=== PATIENT | male | born 1960 ===

== ENCOUNTER 2021-05-10 17:12 | Emergency (ER) | payer SELFPAY ==
[2021-05-10 17:43] VITALS: BP 100/55
--- NOTE | 2021-05-10 21:34 | Emergency Department Report ---
ED Upper Extremity Inj HPI - General Chief Complaint: Wound/Laceration Stated Complaint: CUT ON THE FINGER Time Seen by Provider: 05/10/21 20:02 Source: patient Mode of arrival: Ambulatory Limitations: Language Barrier - History of Present Illness MD Complaint: Injury to:: left, finger -: Sudden (2 days ago accidentally cut finger on the saw), days(s) (2 days ago) Other Extremity Injury: Fingers: Left Other Injuries: none Handedness: right Place: home Improves With: none Worsens With: none Context: injury (Some resulting) Associated Symptoms: denies other symptoms - Related Data Previous Rx's Medication Instructions Recorded Last Taken Type Chlorhexidine Gluconate [Hibiclens] 5 ml TP TID #240 liquid 05/10/21 Unknown Rx cephALEXin [Keflex] 500 mg PO Q8HR #30 cap 05/10/21 Unknown Rx Allergies Allergy/AdvReac Type Severity Reaction Status Date / Time No Known Allergies Allergy Unverified 05/10/21 17:33 ED Review of Systems ROS: Stated complaint: CUT ON THE FINGER Other details as noted in HPI Comment: All other systems reviewed and negative ED Past Medical Hx - Past Medical History Previous Medical History?: Yes Hx Diabetes: Yes - Surgical History Past Surgical History?: No - Social History Smoking Status: Never Smoker Substance Use Type: Alcohol, Prescribed - Medications Home Medications: Home Medications Medication Instructions Recorded Confirmed Last Taken Type Chlorhexidine Gluconate [Hibiclens] 5 ml TP TID #240 liquid 05/10/21 Unknown Rx cephALEXin [Keflex] 500 mg PO Q8HR #30 cap 05/10/21 Unknown Rx ED Physical Exam - General Limitations: Language Barrier General appearance: alert, in no apparent distress - Head Head exam: Present: atraumatic, normocephalic - Eye Eye exam: Present: normal appearance - ENT ENT exam: Present: mucous membranes moist - Neck Neck exam: Present: normal inspection - Respiratory Respiratory exam: Present: normal lung sounds bilaterally. Absent: respiratory distress - Cardiovascular Cardiovascular Exam: Present: regular rate, normal rhythm. Absent: systolic murmur, diastolic murmur, rubs, gallop - GI/Abdominal GI/Abdominal exam: Present: soft, normal bowel sounds - Rectal Rectal exam: Present: deferred - Extremities Exam Extremities exam: Present: normal inspection, tenderness (To the left middle finger. The digit sounds like an intention superficial avulsion like) - Back Exam Back exam: Present: normal inspection - Neurological Exam Neurological exam: Present: alert, oriented X3 - Psychiatric Psychiatric exam: Present: normal affect, normal mood - Skin Skin exam: Present: warm, dry, intact, normal color. Absent: rash ED Course Vital Signs 05/10/21 17:33 Temperature 98.1 F Pulse Rate 75 Respiratory 18 Rate Blood Pressure 100/55 O2 Sat by Pulse 97 Oximetry ED Medical Decision Making - Medical Decision Making 60-year-old diabetic management department with the to the pulmonary saw and treated with his family resulting in [place]ack[place] avulsion type injury scant bleeding he was placed in a surgery form dressing hemostasis was achieved tetanus shot was provided placed on antibiotics advised to follow-up with primary care doctor 2 to 3 days to have wound reevaluated Critical care attestation.: If time is entered above; I have spent that time in minutes in the direct care of this critically ill patient, excluding procedure time. ED Disposition Clinical Impression: Laceration of middle finger with delay in treatment Disposition: DC-01 TO HOME OR SELFCARE Is pt being admited?: No Does the pt Need Aspirin: No Condition: Stable Instructions: Nonsutured Laceration Care Prescriptions: Chlorhexidine Gluconate [Hibiclens] 5 ml TP TID #240 liquid cephALEXin [Keflex] 500 mg PO Q8HR #30 cap Referrals: [facility] [Provider Group] - 3-5 Days [facility], [Primary Care Provider] - 3-5 Days
== END 2021-05-10 21:15 | disposition home or self-care (01) ==
LOC: ED 17:12
DX: S61.218A Laceration without foreign body of other finger without damage to nail, initial encounter (principal); E11.9 Type 2 diabetes mellitus without complications; Z79.899 Other long term (current) drug therapy; X58.XXXA Exposure to other specified factors, initial encounter; Y93.89 Activity, other specified; Y92.099 Unspecified place in other non-institutional residence as the place of occurrence of the external cause; Y99.8 Other external cause status
CPT/HCPCS: 99282

== ENCOUNTER 2021-05-28 14:12 | Emergency (ER) | payer SELFPAY ==
--- NOTE | 2021-05-28 15:58 | Event Note ---
ED Screening Note Date of service: 05/28/21 Time: 15:57 ED Screening Note: 60-year-old male patient with history of diabetes and liver disease presents to the emergency department with complaints of dizziness starting 3 days ago. Patient states his dizziness is worse with standing and moving. No recent fall, trauma, or injury. No history of similar symptoms. Patient recently began taking a new medication prescribed by his primary care provider for his liver. He is unsure what type of liver disease he has. States he used to consume alcohol but has cut back significantly since his primary care provider told him there was an issue with his liver. He has been compliant with his diabetes medications. General: Awake, appropriately interactive, no acute distress. Neck: Supple. Full range of motion intact. Cardiovascular: Normal peripheral perfusion. Pulmonary: No respiratory distress. Patient is speaking normally without use of accessory muscles. Skin: No apparent rashes or lesions. Neurological: No facial asymmetry. Speech is clear. Follows commands. Patient is alert and oriented. Musculoskeletal: Moves all four extremities spontaneously with normal range of motion. Psych: Cooperative. Appropriate mood and affect. I have greeted and performed a focused rapid initial assessment of this patient. A comprehensive ED assessment and evaluation of the patient, analysis of all test results, and completion of the medical decision-making process will be conducted by additional ED providers. This initial assessment/diagnostic orders/clinical plan/treatment(s) is/are subject to change based on patients health status, clinical progression and re-assessment. Further treatment and workup at subsequent clinical provider's discretion. Patient/guardian urged not to elope from the ED as their condition may be serious if not clinically assessed and managed.
--- NOTE | 2021-05-28 16:33 | XRay Report ---
CHEST 2 VIEWS INDICATION / CLINICAL INFORMATION: Chest pain. Dizziness. COMPARISON: None available. FINDINGS: SUPPORT DEVICES: None. HEART / MEDIASTINUM: The heart size and pulmonary vasculature are normal. The aorta is normal in anish jose j. LUNGS / PLEURA: There is a small calcified granuloma in the lingula. The lungs are otherwise clear. N o pleural effusion. No pneumothorax. ADDITIONAL FINDINGS: No significant additional findings. IMPRESSION: No acute findings. Signer Name: Bebo Madrid MD Signed: 05/28/2021 4:29 PM Workstation Name: [id number]
[2021-05-28 17:55] LABS: Basophils % (Auto) 0.4 % (0.0-1.8); Eosinophils # (Auto) 0.2 K/mm3 (0.0-0.4); Hematocrit 44.2 % (35.5-45.6); Hemoglobin 15.2 gm/dl (11.8-15.2); Lymphocytes # (Auto) 1.5 K/mm3 (1.2-5.4); Lymphocytes % (Auto) 28.6 % (13.4-35.0); Mean Corpuscular HGB Conc 34 % (32-34); Mean Corpuscular Volume 94 fl (84-94); Monocytes # (Auto) 0.5 K/mm3 (0.0-0.8); Monocytes % (Auto) 8.9 % (0.0-7.3); Platelet Count 229 K/mm3 (140-440); Red Blood Count 4.68 M/mm3 (3.65-5.03)
[2021-05-28 18:11] LABS: INR 1.02 (0.87-1.13)
[2021-05-28 18:12] LABS: Partial Thromboplastin Time 26.8 Sec. (24.2-36.6)
[2021-05-28 18:16] LABS: Alanine Aminotransferase 21 units/L (7-56); Albumin 4.3 g/dL (3.9-5); BUN/Creatinine Ratio 14; Blood Urea Nitrogen 11 mg/dL (9-20); Calcium 9.4 mg/dL (8.4-10.2); Hemolysis Index 24
--- NOTE | 2021-05-28 18:51 | Emergency Department Report ---
ED Dizziness HPI - General Chief Complaint: Dizziness Stated Complaint: DIABETIC/DIZZINESS SINCE TUESDAY Time Seen by Provider: 05/28/21 18:24 Source: patient, family, subassembler Mode of arrival: Ambulatory Limitations: Language Barrier - History of Present Illness Initial Comments: Chief complaint: Dizzy HPI: This is a 60-year-old male with history of diabetes mellitus, liver disease who presents with dizziness since Tuesday. For the last 3 days patient has had dizziness in the morning. Dizziness occurs in the morning. Also occurs when he abruptly bends over. Episode of dizziness last less than a minute. He denies headache, trauma. He denies blurry vision paralysis. History obtained with the assistance of ED colleague of providing Armenian interpretation Complaint: dizziness -: Gradual, days(s) (3 days ago) Timing: gradual onset, awoke with symptoms Description: "room spinning" History of Same: No History of Trauma: No Severity: mild Improves With: remaining still Worsens With: movement Associated Symptoms: denies other symptoms - Related Data Previous Rx's Medication Instructions Recorded Last Taken Type Chlorhexidine Gluconate [Hibiclens] 5 ml TP TID #240 liquid 05/10/21 Unknown Rx cephALEXin [Keflex] 500 mg PO Q8HR #30 cap 05/10/21 Unknown Rx Meclizine [Antivert] 25 mg PO TID PRN #20 tablet 05/28/21 Unknown Rx Allergies Allergy/AdvReac Type Severity Reaction Status Date / Time No Known Allergies Allergy Verified 05/28/21 15:00 ED Review of Systems ROS: Stated complaint: DIABETIC/DIZZINESS SINCE TUESDAY Other details as noted in HPI Comment: All other systems reviewed and negative ED Past Medical Hx - Past Medical History Previous Medical History?: Yes Hx Diabetes: Yes Additional medical history: Liver disease - Surgical History Past Surgical History?: No - Social History Smoking Status: Never Smoker Substance Use Type: Alcohol, Prescribed - Medications Home Medications: Home Medications Medication Instructions Recorded Confirmed Last Taken Type Chlorhexidine Gluconate [Hibiclens] 5 ml TP TID #240 liquid 05/10/21 Unknown Rx cephALEXin [Keflex] 500 mg PO Q8HR #30 cap 05/10/21 Unknown Rx Meclizine [Antivert] 25 mg PO TID PRN #20 tablet 05/28/21 Unknown Rx ED Physical Exam - General Limitations: Language Barrier (wind farm support specialist at the bedside) General appearance: alert, in no apparent distress - Head Head exam: Present: atraumatic, normocephalic - Eye Eye exam: Present: normal appearance - ENT ENT exam: Present: mucous membranes moist - Neck Neck exam: Present: normal inspection - Respiratory Respiratory exam: Present: normal lung sounds bilaterally. Absent: respiratory distress - Cardiovascular Cardiovascular Exam: Present: regular rate, normal rhythm, normal heart sounds. Absent: systolic murmur, diastolic murmur, rubs, gallop - GI/Abdominal GI/Abdominal exam: Present: soft, normal bowel sounds. Absent: distended, tenderness, guarding, rebound - Rectal Rectal exam: Present: deferred - Extremities Exam Extremities exam: Present: normal inspection - Back Exam Back exam: Present: normal inspection - Neurological Exam Neurological exam: Present: alert, oriented X3, normal gait - Expanded Neurological Exam Expanded Patient oriented to: Present: person, place, time Speech: Present: fluid speech Sensory exam: Upper Extremity Light Touch: Normal Motor strength exam: RUE: 5, LUE: 5, RLE: 5, LLE: 5 Best Eye Response ([place]): (4) open spontaneously Best Motor Response ([place]): (6) obeys commands Best Verbal Response ([place]): (5) oriented Andria Total: 15 - Psychiatric Psychiatric exam: Present: normal affect, normal mood - Skin Skin exam: Present: warm, dry, intact, normal color. Absent: rash ED Course Vital Signs 05/28/21 15:02 Temperature 97.5 F L Pulse Rate 73 Respiratory 20 Rate Blood Pressure 99/62 O2 Sat by Pulse 97 Oximetry ED Medical Decision Making - Lab Data Result diagrams: 05/28/21 17:29 05/28/21 17:29 Laboratory Results - last 24 hr 05/28/21 05/28/21 05/28/21 15:12 17:29 17:29 WBC 5.1 RBC 4.68 Hgb 15.2 Hct 44.2 MCV 94 MCH 32 MCHC 34 RDW 13.0 L Plt Count 229 Lymph % (Auto) 28.6 Kidder % (Auto) 8.9 H Eos % (Auto) 3.0 Baso % (Auto) 0.4 Lymph # (Auto) 1.5 Kidder # (Auto) 0.5 Eos # (Auto) 0.2 Baso # (Auto) 0.0 Seg Neutrophils % 59.1 Seg Neutrophils # 3.0 PT 14.0 INR 1.02 APTT 26.8 VBG pH Sodium Potassium Chloride Carbon Dioxide Anion Gap BUN Creatinine Estimated GFR BUN/Creatinine Ratio Glucose POC Glucose 95 Calcium Magnesium Total Bilirubin AST ALT Alkaline Phosphatase Ammonia Troponin T Total Protein Albumin Albumin/Globulin Ratio Lipase 05/28/21 05/28/21 05/28/21 17:29 17:29 17:29 WBC RBC Hgb Hct MCV MCH MCHC RDW Plt Count Lymph % (Auto) Kidder % (Auto) Eos % (Auto) Baso % (Auto) Lymph # (Auto) Kidder # (Auto) Eos # (Auto) Baso # (Auto) Seg Neutrophils % Seg Neutrophils # PT INR APTT VBG pH 7.348 Sodium 138 Potassium 4.3 Chloride 100.3 Carbon Dioxide 27 Anion Gap 15 BUN 11 Creatinine 0.8 Estimated GFR > 60 BUN/Creatinine Ratio 14 Glucose 93 POC Glucose Calcium 9.4 Magnesium 1.80 Total Bilirubin 0.50 AST 20 ALT 21 Alkaline Phosphatase 81 Ammonia 18.0 L Troponin T Total Protein 7.2 Albumin 4.3 Albumin/Globulin Ratio 1.5 Lipase 37 05/28/21 17:29 WBC RBC Hgb Hct MCV MCH MCHC RDW Plt Count Lymph % (Auto) Kidder % (Auto) Eos % (Auto) Baso % (Auto) Lymph # (Auto) Kidder # (Auto) Eos # (Auto) Baso # (Auto) Seg Neutrophils % Seg Neutrophils # PT INR APTT VBG pH Sodium Potassium Chloride Carbon Dioxide Anion Gap BUN Creatinine Estimated GFR BUN/Creatinine Ratio Glucose POC Glucose Calcium Magnesium Total Bilirubin AST ALT Alkaline Phosphatase Ammonia Troponin T < 0.010 Total Protein Albumin Albumin/Globulin Ratio Lipase - Radiology Data Radiology results: report reviewed Chest radiograph 2 views: Small calcified granuloma in the lung field, otherwise no abnormalities according to radiology impression - Medical Decision Making Clinical impression: Benign positional vertigo, patient given education. No evidence of CVA. CBC chemistry within normal limits. Ammonia within normal labs. EKG normal. Patient given reassurance. Prescribed meclizine. Orthostatic vital signs normal without hypotension. Critical care attestation.: If time is entered above; I have spent that time in minutes in the direct care of this critically ill patient, excluding procedure time. ED Disposition Clinical Impression: Benign positional vertigo Disposition: DC- TO HOME OR SELFCARE Is pt being admited?: No Does the pt Need Aspirin: No Condition: Stable Instructions: Vertigo, [id number], How to Perform the Dewey Maneuver Prescriptions: Meclizine [Antivert] 25 mg PO TID PRN #20 tablet PRN Reason: Vertigo Print Language: AZERI
[2021-05-28 19:01] VITALS: BP 101/68
[2021-05-28 19:27] LABS: Bilirubin,Urine NEG (Negative); Blood,Urine NEG (Negative); Color,Urine Yellow (Yellow); Mucus,Urine FEW /HPF; Protein,Urine <15 mg/dL mg/dL (Negative); Urobilinogen,Urine < 2.0 mg/dL (<2.0)
--- NOTE | 2021-05-29 14:08 | Electrocardiograph Report ---
[facility] Test Date: 2021-05-28 Test Time: 15:21:14 Pat Name: CONNIE SANZ Department: Room: Gender: M Electric Motor Repairman: AIMEE : 1960 Requested By: ED DOC Order Number: [id number] Reading MD: Vitor Landry Measurements Intervals Jerome Rate: 62 P: -14 MS: 210 QRS: -1 QRSD: 65 T: 22 QT: 366 QTc: 372 Interpretive Statements Sinus rhythm Prolonged MS interval No previous ECG available for comparison Electronically Signed On 05-29-2021 14:07:36 EDT by Vitor Landry
== END 2021-05-28 19:05 | disposition home or self-care (01) ==
LOC: ED 14:12
DX: H81.10 Benign paroxysmal vertigo, unspecified ear (principal); E11.9 Type 2 diabetes mellitus without complications; Z79.899 Other long term (current) drug therapy
CPT/HCPCS: 36415; 71046; 80053; 81001; 82140; 82805; 82962; 83690; 83735; 84484; 85025; 85610; 85730; 93005